=== PATIENT | female | born 1970 | race Caucasian/White ===

== ENCOUNTER 2024-05-07 13:11 | Inpatient (IN) | payer MEDICAID ==
[2024-05-07] VITALS (15 sets, daily range): BP systolic 97–150; BP diastolic 50–81; PULSE 90–103; RESP 18–27; TEMP 98–99; O2SAT 94–99
[~2024-05-07] VITALS: Ht 160 cm; Wt 88.0 kg
[~2024-05-07 13:11] MED LIST: etomidate 2mg/ml inj. ONE
[2024-05-07 13:59] LABS: BASOPHILS # (AUTO) 0.1 X10'3 (0-0.2); BASOPHILS % (AUTO) 0.5 % (0-1); EOSINOPHILS % (AUTO) 0.2 % (0-6); LYMPHOCYTES # (AUTO) 2.2 X10'3 (1.1-4.8); LYMPHOCYTES % (AUTO) 20.3 % (21-51); MEAN CORPUSCULAR HEMOGLOBIN 28.9 PG (27.0-31.0); MEAN CORPUSCULAR HGB CONC 32.4 g/dL (33.0-36.5); MEAN PLATELET VOLUME 7.2 FL (7.4-10.4); MONOCYTES # (AUTO) 0.9 X10'3 (0-0.9); NEUTROPHILS # (AUTO) 7.6 X10'3 (1.8-7.7); PLATELET COUNT 225 X10'3 (140-440); RED BLOOD COUNT 2.17 X10'6 (4.20-5.60); RED CELL DISTRIBUTION WIDTH 17.6 % (11.5-14.5); WHITE BLOOD COUNT 10.8 X10'3 (4.5-11.0)
[2024-05-07 14:07] LABS: HEMOGLOBIN 6.3 g/dl (12.0-16.0)
[2024-05-07 14:08] LABS: HEMATOCRIT 19.4 % (35.0-45.0)
[2024-05-07 14:24] LABS: ALANINE AMINOTRANSFERASE 51 U/L (12-78); ALBUMIN 1.6 G/DL (3.4-5.0); ALBUMIN/GLOBULIN RATIO 0.4 (1.1-1.5); ALKALINE PHOSPHATASE 109 IU/L (46-116); ANION GAP 9 (8-16); ASPARTATE AMINO TRANSFERASE 90 U/L (10-37); BILIRUBIN,TOTAL 4.2 MG/DL (0.1-1.0); BLOOD UREA NITROGEN 32 MG/DL (7-18); CALCIUM 8.1 MG/DL (8.5-10.1); CHLORIDE 99 MMOL/L (99-107); CREATININE 1.23 MG/DL (0.40-0.90); GLUCOSE 103 MG/DL (70-104); POTASSIUM 4.3 MMOL/L (3.5-5.1); SODIUM 128 MMOL/L (135-145); TOTAL CARBON DIOXIDE 20.3 MMOL/L (24-32); eCRCL 44 ML/MIN; eGFR 46 ML/MIN
[2024-05-07 14:45] LABS: ABG BASE EXCESS -7.2 mmol/L (-2.0-2.0); ABG HCO3 16.6 mmol/L (22.0-26.0); ABG OXYGEN SATURATION 94.9 % (94-97); ABG PCO2 (T) 27.1 mmHg (32.0-45.0); ABG PH (T) 7.408 (7.350-7.450); ABG PO2 (T) 84.7 mmHg (75.0-100.0); ALLEN'S TEST POSITIVE; FCOHb 0.6 % (0.0-3.9); FMetHb 0.6 % (0.0-1.5); FO2Hb 93.8 % (94-97); MODE VENT - PRVC; PATIENT TEMPERATURE 37.4; PEEP 5 cm H2O; RESPIRATORY RATE 16 b/min; TIDAL VOLUME 350 mL; TOTAL HEMOGLOBIN 6.9 G/dl (12.0-16.0)
[2024-05-07 14:47] LABS: PLATELET ESTIMATE NORMAL
[2024-05-07 14:48] LABS: ANISOCYTOSIS 1+; HYPOCHROMASIA 1+; POLYCHROMASIA 2+
[2024-05-07 14:49] LABS: ELLIPTOCYTES FEW; TARGET CELLS FEW; TEAR DROP CELLS 1+
[2024-05-07 14:50] LABS: SCHISTOCYTES FEW
[2024-05-07] MEDS ORDERED: propofol 1000mg/100ml bottle 100 ML IV SCH (14:50)
[2024-05-07] MEDS: succinylcholine 20mg/ml inj IV ONE ×2 (14:57)
[2024-05-07] MEDS: etomidate 2mg/ml inj. IV ONE (14:57)
[2024-05-07] MEDS: propofol 1000mg/100ml bottle 100 ML IV ONE (14:57)
[2024-05-07] MEDS: furosemide 10 MG/1 ML 10ml inj IV ONE (15:03)
[2024-05-07] MEDS: propofol 1000mg/100ml bottle 100 ML IV SCH (15:06)
[2024-05-07] MEDS ORDERED: DOCU-395 PO (16:14)
[2024-05-07] MEDS ORDERED: ALPR0.5T8 PO (16:14)
[2024-05-07] MEDS ORDERED: OMEP20CA16 PO (16:14)
[2024-05-07] MEDS ORDERED: MAGN30OR PO (16:14)
[2024-05-07] MEDS ORDERED: MAGN100T6 PO (16:14)
[2024-05-07] MEDS ORDERED: BUME2TAB7 PO (16:14)
[2024-05-07] MEDS ORDERED: POTA8CAP20 PO (16:14)
[2024-05-07] MEDS ORDERED: RIFA550T PO (16:15)
[2024-05-07] MEDS ORDERED: SPIR100T5 PO (16:15)
[2024-05-07] MEDS: normal saline 1000ml 1,000 ML IV SCH (16:25)
[2024-05-07] MEDS ORDERED: ondansetron/PF 4mg/2ml inj IV PRN (16:25)
[2024-05-07] MEDS ORDERED: magnesium hydroxide 30ml (MOM) UD suspension PO PRN (16:25)
[2024-05-07] MEDS ORDERED: morphine 4 MG/ML inj SYRINge IV PRN (16:25)
[2024-05-07] MEDS ORDERED: acetaminophen 325mg tablet PO PRN ×2 (16:25)
[2024-05-07] MEDS: octreotide inj. 500 MCG in normal saline 100ml IV soln 97.5 ML IV SCH (16:35)
[2024-05-07] MEDS: albumin (human) 25% 100 ML IV solution IV ONE (17:58)
[2024-05-07] MEDS: FENTANYL-0.9 % NACL/PF 100 ML IV SCH (19:07)
[2024-05-07 19:19] LABS: BASOPHILS # (AUTO) 0.1 X10'3 (0-0.2); BASOPHILS % (AUTO) 0.5 % (0-1); EOSINOPHILS % (AUTO) 0.4 % (0-6); LYMPHOCYTES # (AUTO) 2.8 X10'3 (1.1-4.8); MEAN CORPUSCULAR HEMOGLOBIN 28.6 PG (27.0-31.0); MEAN CORPUSCULAR HGB CONC 32.1 g/dL (33.0-36.5); MEAN CORPUSCULAR VOLUME 89.1 FL (78-98); MONOCYTES # (AUTO) 0.9 X10'3 (0-0.9); MONOCYTES % (AUTO) 7.9 % (2-12); NEUTROPHILS # (AUTO) 7.4 X10'3 (1.8-7.7); NEUTROPHILS % (AUTO) 66.2 % (42-75); PLATELET COUNT 191 X10'3 (140-440); RED BLOOD COUNT 2.23 X10'6 (4.20-5.60); RED CELL DISTRIBUTION WIDTH 16.9 % (11.5-14.5); WHITE BLOOD COUNT 11.2 X10'3 (4.5-11.0)
[2024-05-07 19:24] LABS: HEMATOCRIT 19.8 % (35.0-45.0); HEMOGLOBIN 6.4 g/dl (12.0-16.0)
[2024-05-07 19:29] LABS: ALBUMIN 2.2 G/DL (3.4-5.0); ANION GAP 10 (8-16); APTT 31 SECONDS (22-32); BLOOD UREA NITROGEN 30 MG/DL (7-18); BUN/CREATININE RATIO 25.4 (10.0-20.0); CHLORIDE 99 MMOL/L (99-107); CREATININE 1.18 MG/DL (0.40-0.90); GLUCOSE 102 MG/DL (70-104); INR 1.6 INR; MAGNESIUM 1.7 MG/DL (1.5-2.4); POTASSIUM 3.9 MMOL/L (3.5-5.1); SODIUM 128 MMOL/L (135-145); TOTAL CARBON DIOXIDE 19.5 MMOL/L (24-32); eCRCL 46 ML/MIN; eGFR 48 ML/MIN
[2024-05-07 19:32] LABS: PHOSPHORUS 4.1 MG/DL (2.3-4.5)
[2024-05-07] MEDS: docusate sod 100mg capsule PO SCH (19:34)
[2024-05-07] MEDS: rifaximin 550mg tablet PO SCH (19:39)
[2024-05-07] MEDS: lactulose 20gm/30ml cup PO SCH (19:39)
[2024-05-07] MEDS: pantoprazole 40MG/NS 100ML BAG 100 ML IV SCH (19:39)
[2024-05-07 23:05] LABS: BASOPHILS # (AUTO) 0.1 X10'3 (0-0.2); BASOPHILS % (AUTO) 0.6 % (0-1); EOSINOPHILS # (AUTO) 0.1 X10'3 (0-0.9); EOSINOPHILS % (AUTO) 0.9 % (0-6); HEMOGLOBIN 7.2 g/dl (12.0-16.0); LYMPHOCYTES # (AUTO) 2.9 X10'3 (1.1-4.8); LYMPHOCYTES % (AUTO) 28.2 % (21-51); MEAN CORPUSCULAR HEMOGLOBIN 29.6 PG (27.0-31.0); MEAN CORPUSCULAR HGB CONC 33.5 g/dL (33.0-36.5); MEAN CORPUSCULAR VOLUME 88.3 FL (78-98); MONOCYTES # (AUTO) 0.7 X10'3 (0-0.9); MONOCYTES % (AUTO) 6.9 % (2-12); NEUTROPHILS # (AUTO) 6.6 X10'3 (1.8-7.7); NEUTROPHILS % (AUTO) 63.4 % (42-75); PLATELET COUNT 162 X10'3 (140-440); RED BLOOD COUNT 2.44 X10'6 (4.20-5.60); WHITE BLOOD COUNT 10.4 X10'3 (4.5-11.0)
[2024-05-07 23:07] LABS: HEMATOCRIT 21.5 % (35.0-45.0)
[2024-05-08] VITALS (38 sets, daily range): BP systolic 94–119; BP diastolic 45–73; PULSE 83–93; RESP 15–26; O2SAT 93–100
[2024-05-08] MEDS: albumin (human) 25% 100 ML IV solution IV ONE (01:14)
[2024-05-08 02:43] LABS: BASOPHILS # (AUTO) 0.1 X10'3 (0-0.2); BASOPHILS % (AUTO) 1.4 % (0-1); EOSINOPHILS # (AUTO) 0.1 X10'3 (0-0.9); EOSINOPHILS % (AUTO) 1.3 % (0-6); LYMPHOCYTES # (AUTO) 3.2 X10'3 (1.1-4.8); LYMPHOCYTES % (AUTO) 32.4 % (21-51); MEAN CORPUSCULAR HEMOGLOBIN 29.4 PG (27.0-31.0); MEAN CORPUSCULAR HGB CONC 33.4 g/dL (33.0-36.5); MEAN CORPUSCULAR VOLUME 88.1 FL (78-98); MEAN PLATELET VOLUME 7.1 FL (7.4-10.4); MONOCYTES # (AUTO) 0.6 X10'3 (0-0.9); NEUTROPHILS # (AUTO) 5.8 X10'3 (1.8-7.7); NEUTROPHILS % (AUTO) 58.9 % (42-75); PLATELET COUNT 158 X10'3 (140-440); RED BLOOD COUNT 2.32 X10'6 (4.20-5.60); RED CELL DISTRIBUTION WIDTH 16.2 % (11.5-14.5); WHITE BLOOD COUNT 9.8 X10'3 (4.5-11.0)
[2024-05-08 02:44] LABS: APTT 33 SECONDS (22-32); INR 1.7 INR; PROTHROMBIN TIME 17.3 SECONDS (9.0-12.0)
[2024-05-08 02:47] LABS: ALANINE AMINOTRANSFERASE 38 U/L (12-78); ALBUMIN 2.5 G/DL (3.4-5.0); ALKALINE PHOSPHATASE 79 IU/L (46-116); ANION GAP 9 (8-16); ASPARTATE AMINO TRANSFERASE 74 U/L (10-37); BILIRUBIN,TOTAL 7.8 MG/DL (0.1-1.0); BLOOD UREA NITROGEN 31 MG/DL (7-18); BUN/CREATININE RATIO 27.9 (10.0-20.0); CALCIUM 8.1 MG/DL (8.5-10.1); CHLORIDE 100 MMOL/L (99-107); CREATININE 1.11 MG/DL (0.40-0.90); GLUCOSE 108 MG/DL (70-104); MAGNESIUM 1.8 MG/DL (1.5-2.4); POTASSIUM 3.6 MMOL/L (3.5-5.1); SODIUM 128 MMOL/L (135-145); TOTAL CARBON DIOXIDE 19.4 MMOL/L (24-32); eCRCL 49 ML/MIN; eGFR 52 ML/MIN
[2024-05-08 02:48] LABS: ALBUMIN/GLOBULIN RATIO 0.8 (1.1-1.5); TOTAL PROTEIN 5.7 G/DL (6.4-8.2)
[2024-05-08 02:56] LABS: HEMATOCRIT 20.5 % (35.0-45.0); HEMOGLOBIN 6.8 g/dl (12.0-16.0)
[2024-05-08 03:48] LABS: ABG BASE EXCESS -4.5 mmol/L (-2.0-2.0); ABG HCO3 18.9 mmol/L (22.0-26.0); ABG OXYGEN SATURATION 89.9 % (94-97); ABG PCO2 (T) 27.2 mmHg (32.0-45.0); ABG PH (T) 7.457 (7.350-7.450); ABG PO2 (T) 55.9 mmHg (75.0-100.0); ALLEN'S TEST Modified; FCOHb 2.7 % (0.0-3.9); FHHb 9.8 % (0.0-5.0); FMetHb 0.3 % (0.0-1.5); FO2Hb 87.2 % (94-97); MODE VENT - prvc; PATIENT TEMPERATURE 36.6; PEEP 5 cm H2O; RESPIRATORY RATE 18 b/min; TIDAL VOLUME 350 mL; TOTAL HEMOGLOBIN 7.4 G/dl (12.0-16.0)
[2024-05-08 06:43] LABS: BASOPHILS # (AUTO) 0.1 X10'3 (0-0.2); BASOPHILS % (AUTO) 1.3 % (0-1); EOSINOPHILS # (AUTO) 0.1 X10'3 (0-0.9); EOSINOPHILS % (AUTO) 1.4 % (0-6); LYMPHOCYTES # (AUTO) 3.1 X10'3 (1.1-4.8); LYMPHOCYTES % (AUTO) 35.9 % (21-51); MEAN CORPUSCULAR HEMOGLOBIN 28.9 PG (27.0-31.0); MEAN CORPUSCULAR HGB CONC 32.9 g/dL (33.0-36.5); MEAN CORPUSCULAR VOLUME 87.8 FL (78-98); MONOCYTES # (AUTO) 0.5 X10'3 (0-0.9); MONOCYTES % (AUTO) 6.2 % (2-12); NEUTROPHILS # (AUTO) 4.8 X10'3 (1.8-7.7); NEUTROPHILS % (AUTO) 55.2 % (42-75); PLATELET COUNT 164 X10'3 (140-440); RED BLOOD COUNT 2.32 X10'6 (4.20-5.60); RED CELL DISTRIBUTION WIDTH 16.1 % (11.5-14.5); WHITE BLOOD COUNT 8.7 X10'3 (4.5-11.0)
[2024-05-08 06:47] LABS: HEMOGLOBIN 6.7 g/dl (12.0-16.0)
[2024-05-08 06:48] LABS: HEMATOCRIT 20.4 % (35.0-45.0)
[2024-05-08] MEDS: CefTRIAXone/D5W-Rocephin 1gm 50 ML IV SCH (07:58)
[2024-05-08] MEDS: LIDOcaine 1% (10mg/ml) 2ml vial ONE (08:34)
[2024-05-08 10:08] LABS: BASOPHILS # (AUTO) 0.1 X10'3 (0-0.2); BASOPHILS % (AUTO) 1.3 % (0-1); EOSINOPHILS # (AUTO) 0.1 X10'3 (0-0.9); EOSINOPHILS % (AUTO) 1.8 % (0-6); LYMPHOCYTES % (AUTO) 39.4 % (21-51); MEAN CORPUSCULAR HEMOGLOBIN 29.1 PG (27.0-31.0); MEAN CORPUSCULAR HGB CONC 33.3 g/dL (33.0-36.5); MEAN CORPUSCULAR VOLUME 87.5 FL (78-98); MONOCYTES # (AUTO) 0.5 X10'3 (0-0.9); MONOCYTES % (AUTO) 6.3 % (2-12); NEUTROPHILS # (AUTO) 3.9 X10'3 (1.8-7.7); NEUTROPHILS % (AUTO) 51.2 % (42-75); PLATELET COUNT 159 X10'3 (140-440); RED BLOOD COUNT 2.28 X10'6 (4.20-5.60); RED CELL DISTRIBUTION WIDTH 16.5 % (11.5-14.5); WHITE BLOOD COUNT 7.6 X10'3 (4.5-11.0)
[2024-05-08 10:12] LABS: HEMOGLOBIN 6.6 g/dl (12.0-16.0)
[2024-05-08] MEDS: mineral oil/petrolatum ophthal oint EACHEYE SCH (19:31)
[2024-05-08] MEDS ORDERED: epiNEPHrine 0.1mg/ml 10ml syringe ONE (20:19)
[2024-05-08] MEDS: COMMUNICATION ORDER 1 EA MISC MC ONE (20:26)
[2024-05-09] VITALS (32 sets, daily range): BP systolic 81–107; BP diastolic 48–71; PULSE 81–99; RESP 7–21; TEMP 97.8; O2SAT 95–100
[2024-05-09 00:36] LABS: BASOPHILS # (AUTO) 0.1 X10'3 (0-0.2); BASOPHILS % (AUTO) 1.2 % (0-1); EOSINOPHILS # (AUTO) 0.1 X10'3 (0-0.9); EOSINOPHILS % (AUTO) 1.7 % (0-6); HEMATOCRIT 22.4 % (35.0-45.0); HEMOGLOBIN 7.3 g/dl (12.0-16.0); LYMPHOCYTES # (AUTO) 1.9 X10'3 (1.1-4.8); LYMPHOCYTES % (AUTO) 31.1 % (21-51); MEAN CORPUSCULAR HEMOGLOBIN 28.8 PG (27.0-31.0); MEAN CORPUSCULAR HGB CONC 32.8 g/dL (33.0-36.5); MEAN CORPUSCULAR VOLUME 87.8 FL (78-98); MEAN PLATELET VOLUME 6.6 FL (7.4-10.4); MONOCYTES # (AUTO) 0.4 X10'3 (0-0.9); MONOCYTES % (AUTO) 6.9 % (2-12); NEUTROPHILS # (AUTO) 3.6 X10'3 (1.8-7.7); NEUTROPHILS % (AUTO) 59.1 % (42-75); PLATELET COUNT 165 X10'3 (140-440); RED BLOOD COUNT 2.55 X10'6 (4.20-5.60); RED CELL DISTRIBUTION WIDTH 16.2 % (11.5-14.5); WHITE BLOOD COUNT 6.1 X10'3 (4.5-11.0)
[2024-05-09 00:47] LABS: APTT 32 SECONDS (22-32); INR 1.6 INR; PROTHROMBIN TIME 17.1 SECONDS (9.0-12.0)
[2024-05-09 01:02] LABS: ALANINE AMINOTRANSFERASE 41 U/L (12-78); ALBUMIN 2.1 G/DL (3.4-5.0); ALKALINE PHOSPHATASE 79 IU/L (46-116); ANION GAP 6 (8-16); ASPARTATE AMINO TRANSFERASE 101 U/L (10-37); BILIRUBIN,TOTAL 8.2 MG/DL (0.1-1.0); BLOOD UREA NITROGEN 23 MG/DL (7-18); BUN/CREATININE RATIO 25.3 (10.0-20.0); CALCIUM 8.5 MG/DL (8.5-10.1); CHLORIDE 105 MMOL/L (99-107); CREATININE 0.91 MG/DL (0.40-0.90); GLUCOSE 89 MG/DL (70-104); MAGNESIUM 1.9 MG/DL (1.5-2.4); POTASSIUM 3.5 MMOL/L (3.5-5.1); SODIUM 132 MMOL/L (135-145); TOTAL CARBON DIOXIDE 20.9 MMOL/L (24-32); eCRCL 60 ML/MIN; eGFR 65 ML/MIN
[2024-05-09 01:03] LABS: ALBUMIN/GLOBULIN RATIO 0.6 (1.1-1.5); PHOSPHORUS 2.7 MG/DL (2.3-4.5); TOTAL PROTEIN 5.4 G/DL (6.4-8.2)
[2024-05-09] MEDS: fentaNYL/PF 50MCG/1 ML 2ML syringe IV PRN (02:09)
[2024-05-09 03:02] LABS: ABG BASE EXCESS -3.9 mmol/L (-2.0-2.0); ABG HCO3 19.5 mmol/L (22.0-26.0); ABG OXYGEN SATURATION 97.7 % (94-97); ABG PCO2 (T) 29.1 mmHg (32.0-45.0); ABG PH (T) 7.445 (7.350-7.450); ABG PO2 (T) 101.6 mmHg (75.0-100.0); FCOHb 1.8 % (0.0-3.9); FHHb 2.3 % (0.0-5.0); FMetHb 0.3 % (0.0-1.5); FO2Hb 95.6 % (94-97); MODE pvc; PATIENT TEMPERATURE 37.1; PEEP 5 cm H2O; RESPIRATORY RATE 18 b/min; TIDAL VOLUME 350 mL; TOTAL HEMOGLOBIN 7.9 G/dl (12.0-16.0)
[2024-05-09] MEDS ORDERED: polyethylene glycol 3350 17gm powd pack PO SCH ×2 (10:31→10:33)
[2024-05-09] MEDS ORDERED: polyethylene glycol 3350 17gm powd pack NG SCH (10:33)
[2024-05-09] MEDS: polyethylene glycol 3350 17gm powd pack PO SCH (14:40)
[2024-05-09] MEDS: bisacodyl 10mg suppository rectal RC STA (14:40)
[2024-05-09] MEDS: docusate sodium 100mg/10ml UD cup PO SCH (19:57)
[2024-05-09] MEDS ORDERED: docusate sod 250mg capsule PO SCH (20:00)
[2024-05-10] VITALS (8 sets, daily range): BP systolic 86–101; BP diastolic 54–73; PULSE 60–89; RESP 8–20; TEMP 96.6–98.2; O2SAT 92–100
[2024-05-10] MEDS: morphine 2 MG/ML inj. syringe IV PRN (02:44)
[2024-05-10 06:33] LABS: APTT 33 SECONDS (22-32); INR 1.8 INR; PROTHROMBIN TIME 18.2 SECONDS (9.0-12.0)
[2024-05-10 07:12] LABS: ALANINE AMINOTRANSFERASE 48 U/L (12-78); ALBUMIN 1.7 G/DL (3.4-5.0); ALBUMIN/GLOBULIN RATIO 0.5 (1.1-1.5); ALKALINE PHOSPHATASE 70 IU/L (46-116); ANION GAP 5 (8-16); ASPARTATE AMINO TRANSFERASE 117 U/L (10-37); BILIRUBIN,TOTAL 8.3 MG/DL (0.1-1.0); BLOOD UREA NITROGEN 16 MG/DL (7-18); BUN/CREATININE RATIO 21.1 (10.0-20.0); CALCIUM 7.3 MG/DL (8.5-10.1); CHLORIDE 108 MMOL/L (99-107); CREATININE 0.76 MG/DL (0.40-0.90); GLUCOSE 111 MG/DL (70-104); PHOSPHORUS 2.3 MG/DL (2.3-4.5); POTASSIUM 3.6 MMOL/L (3.5-5.1); SODIUM 135 MMOL/L (135-145); TOTAL CARBON DIOXIDE 21.8 MMOL/L (24-32); TOTAL PROTEIN 4.8 G/DL (6.4-8.2); eCRCL 72 ML/MIN; eGFR 80 ML/MIN
[2024-05-10] MEDS ORDERED: MULTIVIT-MIN/FERROUS GLUCONATE 9 MG/15 ML LIQUID NG SCH (08:00)
[2024-05-10] MEDS ORDERED: folic acid 1mg tablet NG SCH (08:00)
[2024-05-10] MEDS ORDERED: thiamine 100mg tablet NG SCH (08:00)
[2024-05-10] MEDS: thiamine 100mg tablet PO SCH (09:43)
[2024-05-10] MEDS: folic acid 1mg tablet PO SCH (09:44)
[2024-05-10] MEDS: MULTIVIT-MIN/FERROUS GLUCONATE 9 MG/15 ML LIQUID PO SCH (09:44)
[2024-05-10 11:02] LABS: BASOPHILS # (AUTO) 0.1 X10'3 (0-0.2); EOSINOPHILS % (AUTO) 1.2 % (0-6); HEMOGLOBIN 7.1 g/dl (12.0-16.0)
[2024-05-10 11:04] LABS: BASOPHILS % (AUTO) 1.2 % (0-1); LYMPHOCYTES # (AUTO) 1.4 X10'3 (1.1-4.8); LYMPHOCYTES % (AUTO) 33.1 % (21-51); MEAN CORPUSCULAR HEMOGLOBIN 29.4 PG (27.0-31.0); MEAN CORPUSCULAR HGB CONC 32.5 g/dL (33.0-36.5); MEAN CORPUSCULAR VOLUME 90.3 FL (78-98); MEAN PLATELET VOLUME 6.8 FL (7.4-10.4); MONOCYTES # (AUTO) 0.4 X10'3 (0-0.9); MONOCYTES % (AUTO) 8.6 % (2-12); NEUTROPHILS # (AUTO) 2.3 X10'3 (1.8-7.7); NEUTROPHILS % (AUTO) 55.9 % (42-75); PLATELET COUNT 153 X10'3 (140-440); RED BLOOD COUNT 2.42 X10'6 (4.20-5.60); RED CELL DISTRIBUTION WIDTH 16.8 % (11.5-14.5); WHITE BLOOD COUNT 4.1 X10'3 (4.5-11.0)
[2024-05-10 11:10] LABS: HEMATOCRIT 21.8 % (35.0-45.0)
[2024-05-10 11:52] LABS: ANISOCYTOSIS 1+; PLATELET ESTIMATE NORMAL
[2024-05-10 11:53] LABS: ACANTHOCYTES 1+; BURR CELLS 2+; SCHISTOCYTES 1+
[2024-05-10 11:54] LABS: LARGE PLATELETS FEW
[2024-05-10] MEDS ORDERED: bisacodyl 10mg suppository rectal RC PRN (16:10)
[2024-05-10] MEDS: bisacodyl 10mg suppository rectal RC STA (16:32)
[2024-05-10] MEDS: ketorolac trometh. 30mg/ml inj. IV ONE (20:35)
[2024-05-10] MEDS ORDERED: ketorolac tromethamine 15mg/ml inj. IM ONE (20:35)
[2024-05-11] VITALS (8 sets, daily range): BP systolic 91–121; BP diastolic 52–79; PULSE 83–98; RESP 14–20; TEMP 97–98.1; O2SAT 93–96
[2024-05-11] MEDS: HYDROmorphone 1 mg/ml syringe IV STA (03:28)
[2024-05-11 06:33] LABS: APTT 33 SECONDS (22-32); INR 1.9 INR; PROTHROMBIN TIME 18.9 SECONDS (9.0-12.0)
[2024-05-11 06:42] LABS: ALANINE AMINOTRANSFERASE 62 U/L (12-78); ALBUMIN 1.7 G/DL (3.4-5.0); ALKALINE PHOSPHATASE 79 IU/L (46-116); ANION GAP 6 (8-16); BLOOD UREA NITROGEN 15 MG/DL (7-18); BUN/CREATININE RATIO 21.7 (10.0-20.0); CALCIUM 7.3 MG/DL (8.5-10.1); CHLORIDE 104 MMOL/L (99-107); CREATININE 0.69 MG/DL (0.40-0.90); GLUCOSE 92 MG/DL (70-104); SODIUM 129 MMOL/L (135-145); TOTAL CARBON DIOXIDE 19.2 MMOL/L (24-32); eCRCL 79 ML/MIN; eGFR 89 ML/MIN
[2024-05-11 06:44] LABS: ALBUMIN/GLOBULIN RATIO 0.5 (1.1-1.5); ASPARTATE AMINO TRANSFERASE 165 U/L (10-37); PHOSPHORUS 2.4 MG/DL (2.3-4.5); POTASSIUM 4.2 MMOL/L (3.5-5.1); TOTAL PROTEIN 5.1 G/DL (6.4-8.2)
[2024-05-11 08:15] LABS: BASOPHILS # (AUTO) 0.1 X10'3 (0-0.2); BASOPHILS % (AUTO) 1.1 % (0-1); EOSINOPHILS % (AUTO) 0.6 % (0-6); HEMATOCRIT 23.9 % (35.0-45.0); HEMOGLOBIN 7.9 g/dl (12.0-16.0); LYMPHOCYTES # (AUTO) 1.5 X10'3 (1.1-4.8); LYMPHOCYTES % (AUTO) 26.4 % (21-51); MEAN CORPUSCULAR HEMOGLOBIN 29.5 PG (27.0-31.0); MEAN CORPUSCULAR HGB CONC 32.8 g/dL (33.0-36.5); MEAN PLATELET VOLUME 6.7 FL (7.4-10.4); MONOCYTES # (AUTO) 0.5 X10'3 (0-0.9); MONOCYTES % (AUTO) 8.3 % (2-12); NEUTROPHILS # (AUTO) 3.7 X10'3 (1.8-7.7); NEUTROPHILS % (AUTO) 63.6 % (42-75); PLATELET COUNT 161 X10'3 (140-440); RED BLOOD COUNT 2.66 X10'6 (4.20-5.60); RED CELL DISTRIBUTION WIDTH 17.2 % (11.5-14.5); WHITE BLOOD COUNT 5.8 X10'3 (4.5-11.0)
[2024-05-11 09:18] LABS: ANISOCYTOSIS 1+; NUCLEATED RED BLOOD CELLS 1 /100WBC (0-0); PLATELET ESTIMATE NORMAL; SMUDGE CELLS 2+; TOTAL CELLS COUNTED 100
[2024-05-11 09:19] LABS: BURR CELLS 3+; POLYCHROMASIA FEW
[2024-05-11 09:20] LABS: ELLIPTOCYTES FEW
[2024-05-11 09:22] LABS: ACANTHOCYTES FEW; LARGE PLATELETS FEW
[2024-05-11 09:23] LABS: TEAR DROP CELLS FEW
[2024-05-11] MEDS: furosemide 20 MG/2 ML vial IV ONE (13:38)
[2024-05-11] MEDS: potassium Cl 20 mEq SR tablet PO SCH (21:55)
[2024-05-11] MEDS: polyethylene glycol 3350 17gm powd pack PO ONE (22:00)
[2024-05-11] MEDS: morphine 2 MG/ML inj. syringe IV PRN (22:08)
[2024-05-12 02:00] VITALS: BP 116/71; PULSE 94; RESP 22; TEMP 97.4; O2SAT 96
[2024-05-12] MEDS: morphine 4 MG/ML inj SYRINge IV PRN (04:33)
[2024-05-12 06:00] VITALS: BP 128/77; PULSE 93; RESP 20; TEMP 97.9; O2SAT 96
[2024-05-12 06:45] LABS: APTT 33 SECONDS (22-32); PROTHROMBIN TIME 19.8 SECONDS (9.0-12.0)
[2024-05-12 06:58] LABS: ALANINE AMINOTRANSFERASE 70 U/L (12-78); ALBUMIN 1.8 G/DL (3.4-5.0); ALKALINE PHOSPHATASE 94 IU/L (46-116); ANION GAP 6 (8-16); ASPARTATE AMINO TRANSFERASE 169 U/L (10-37); BILIRUBIN,TOTAL 11.8 MG/DL (0.1-1.0); BLOOD UREA NITROGEN 19 MG/DL (7-18); BUN/CREATININE RATIO 24.4 (10.0-20.0); CALCIUM 7.6 MG/DL (8.5-10.1); CHLORIDE 103 MMOL/L (99-107); CREATININE 0.78 MG/DL (0.40-0.90); GLUCOSE 112 MG/DL (70-104); MAGNESIUM 1.9 MG/DL (1.5-2.4); SODIUM 130 MMOL/L (135-145); TOTAL CARBON DIOXIDE 20.7 MMOL/L (24-32); eCRCL 70 ML/MIN; eGFR 78 ML/MIN
[2024-05-12 07:00] LABS: % IRON SATURATION 18 % (11-46); IRON 36 UG/DL (49-151); TOTAL IRON BINDING CAPACITY 195 UG/DL (259-388)
[2024-05-12 07:05] LABS: ALBUMIN/GLOBULIN RATIO 0.5 (1.1-1.5); PHOSPHORUS 2.2 MG/DL (2.3-4.5); POTASSIUM 4.3 MMOL/L (3.5-5.1); TOTAL PROTEIN 5.4 G/DL (6.4-8.2)
[2024-05-12 08:00] VITALS: RESP 20; O2SAT 96
[2024-05-12 09:30] LABS: BASOPHILS # (AUTO) 0.1 X10'3 (0-0.2); EOSINOPHILS # (AUTO) 0.1 X10'3 (0-0.9); EOSINOPHILS % (AUTO) 0.8 % (0-6); HEMATOCRIT 25.7 % (35.0-45.0); HEMOGLOBIN 8.4 g/dl (12.0-16.0); LYMPHOCYTES # (AUTO) 1.6 X10'3 (1.1-4.8); MEAN CORPUSCULAR HEMOGLOBIN 29.7 PG (27.0-31.0); MEAN CORPUSCULAR HGB CONC 32.5 g/dL (33.0-36.5); MEAN CORPUSCULAR VOLUME 91.4 FL (78-98); MEAN PLATELET VOLUME 6.6 FL (7.4-10.4); MONOCYTES # (AUTO) 0.6 X10'3 (0-0.9); MONOCYTES % (AUTO) 7.8 % (2-12); NEUTROPHILS # (AUTO) 5.9 X10'3 (1.8-7.7); NEUTROPHILS % (AUTO) 71.4 % (42-75); PLATELET COUNT 190 X10'3 (140-440); RED BLOOD COUNT 2.82 X10'6 (4.20-5.60); RED CELL DISTRIBUTION WIDTH 17.3 % (11.5-14.5); WHITE BLOOD COUNT 8.3 X10'3 (4.5-11.0)
[2024-05-12] MEDS ORDERED: iohexol 300mg/ml 100ml inj. ONE (10:55)
[2024-05-12 10:57] LABS: ANISOCYTOSIS 1+; PLATELET ESTIMATE NORMAL; TOTAL CELLS COUNTED 100
[2024-05-12 10:58] LABS: ACANTHOCYTES 1+; BURR CELLS 1+; POLYCHROMASIA FEW
[2024-05-12 10:59] LABS: ELLIPTOCYTES FEW; POIKILOCYTOSIS FEW
[2024-05-12 11:00] VITALS: BP 115/73; PULSE 96; RESP 16; TEMP 98.6; O2SAT 95
[2024-05-12 11:01] LABS: SMUDGE CELLS 1+
[2024-05-12 15:00] VITALS: BP 126/75; PULSE 95; RESP 16; TEMP 98.2; O2SAT 94
== END 2024-05-12 18:00 | DRG 133 ==
LOC: ER 13:12 → ED HOLD 17:13 → CICU 2S 17:30 → PCU 3S 05-09 22:10
PROVIDERS: ADMIT Internal Medicine Critical Care Medicine; ATTEND Internal Medicine
PROC: 0BH17EZ Insertion of Endotracheal Airway into Trachea, Via Natural or Artificial Opening (ICD-10-PCS; principal; 2024-05-07)
PROC: 5A1935Z Respiratory Ventilation, Less than 24 Consecutive Hours (ICD-10-PCS; 2024-05-07)
PROC: 06HY33Z Insertion of Infusion Device into Lower Vein, Percutaneous Approach (ICD-10-PCS; 2024-05-07)
PROC: 30233N1 Transfusion of Nonautologous Red Blood Cells into Peripheral Vein, Percutaneous Approach (ICD-10-PCS; 2024-05-07)
PROC: 5A1945Z Respiratory Ventilation, 24-96 Consecutive Hours (ICD-10-PCS; 2024-05-07)
PROC: 0W9G3ZZ Drainage of Peritoneal Cavity, Percutaneous Approach (ICD-10-PCS; 2024-05-08)
PROC: 0W993ZZ Drainage of Right Pleural Cavity, Percutaneous Approach (ICD-10-PCS; 2024-05-08)
PROC: 0DJ08ZZ Inspection of Upper Intestinal Tract, Via Natural or Artificial Opening Endoscopic (ICD-10-PCS; 2024-05-08)
PROC: BW251ZZ Computerized Tomography (CT Scan) of Chest, Abdomen and Pelvis using Low Osmolar Contrast (ICD-10-PCS; 2024-05-12)
DX: J96.01 Acute respiratory failure with hypoxia (principal); K76.82 Hepatic encephalopathy; J90 Pleural effusion, not elsewhere classified; K70.31 Alcoholic cirrhosis of liver with ascites; K72.10 Chronic hepatic failure without coma; E87.1 Hypo-osmolality and hyponatremia; E88.09 Other disorders of plasma-protein metabolism, not elsewhere classified; D50.0 Iron deficiency anemia secondary to blood loss (chronic); K59.00 Constipation, unspecified; Z88.0 Allergy status to penicillin; Z79.899 Other long term (current) drug therapy; Z91.040 Latex allergy status
CPT/HCPCS: 36415; 36430; 36600; 43235; 71045; 71260; 74018; 74177; 80048; 80053; 82140; 82803; 82948; 83540; 83550; 83605; 83735; 84100; 84134; 84145; 85007; 85008; 85018; 85025; 85610; 85730; 86885; 86900; 86901; 86920; 87070; 87081; 92508; 92616; 93005; 93306; 94002; 94003; 94760; 94799; 97110; 97161; 97530; 99291; 99292; A4615; A5200; A6213; A6222; A6223; A6258; A6449; C1729; C1751; G0378; J0171; J0330; J0696; J1170; J1885; J1940; J2270; J2354; J2470; J2704; J3010; J3490; J7030; J7040; P9016; P9047; Q9967